=== PATIENT | male | born 1985 | race Caucasian/White ===

== ENCOUNTER 2020-12-11 09:34 | Emergency (ER) | payer SELFPAY ==
[~2020-12-11] VITALS: Ht 170.2 cm; Wt 72.6 kg
[2020-12-11 09:44] VITALS: BP_SYST 111
[2020-12-11] MEDS ORDERED: KETOROLAC TROMETHAMINE 60 MG/2 ML VIAL IM ONE (10:00)
[2020-12-11 10:12] LABS: BILIRUBIN,URINE NEGATIVE (NEGATIVE); BLOOD, URINE NEGATIVE (NEGATIVE); CLARITY/URINE CLEAR (CLEAR); COLOR,URINE YELLOW (YELLOW); GLUCOSE,URINE NEGATIVE (NEGATIVE); KETONES,URINE NEGATIVE (NEGATIVE); LEUKOCYTE ESTERASE ,URINE NEGATIVE (NEGATIVE); NITRITE, URINE NEGATIVE (NEGATIVE); PH,URINE 5.5 (5.0-8.0); PROTEIN URINE NEGATIVE (NEGATIVE); UROBILINOGEN,URINE 0.2 (0.2-1.0)
[2020-12-11] MEDS ORDERED: NAPR-688 PO (12:24)
[2020-12-11 13:13] VITALS: BP_SYST 111
== END 2020-12-11 13:13 | disposition home or self-care (01) ==
LOC: SED 09:34
DX: R10.9 Unspecified abdominal pain (principal); Z79.899 Other long term (current) drug therapy
CPT/HCPCS: 71045; 81003; 96372; 99284; J1885